=== PATIENT | male | born 1985 | race Caucasian/White ===

== ENCOUNTER 2021-02-12 15:54 | Emergency (ER) | payer OTHER ==
[2021-02-12 16:47] LABS: BASOPHIL 0.6 % (0-2); HCT 47.9 % (42.0-52.0); HGB 16.2 g/dl (13.2-18.0); MCH 29.1 pg (25.0-31.0); MCHC 33.8 g/dL (32.0-36.0); MCV 86.2 fL (78.0-100.0); MONOCYTE 7.5 % (0-12); MPV 10.6 fL (6.0-9.5); NEUTROPHIL 73.6 % (41-80); NRBC 0; PLT 296 K/uL (150-400); RBC 5.56 M/uL (4.70-6.00); RDW 13.2 % (11.5-14.0); WBC 9.9 K/uL (4.0-10.5)
[2021-02-12 16:58] LABS: ALBUMIN 3.9 g/dL (3.4-5.0); BILIRUBIN - TOTAL 0.6 mg/dL (0.2-1.0); CREATININE 1.08 mg/dL (0.67-1.17); GLOBULIN (CALCULATION) 3.8 g/dL; POTASSIUM 3.9 mmol/L (3.5-5.1); TOTAL PROTEIN 7.7 g/dL (6.4-8.2)
[2021-02-12] MEDS ORDERED: ATARAX25 MG PO (17:33)
== END 2021-02-12 18:10 | disposition home or self-care (01) ==
LOC: FER 15:54
PROVIDERS: Emergency Medicine
DX: R07.89 Other chest pain (principal); F41.9 Anxiety disorder, unspecified; E66.9 Obesity, unspecified; Z88.0 Allergy status to penicillin
CPT/HCPCS: 36415; 71045; 80053; 84484; 85025